=== PATIENT | male | born 1965 | race Caucasian/White ===

== ENCOUNTER 2016-08-26 02:31 | Emergency (ER) | payer OTHER ==
[~2016-08-26] VITALS: Ht 175.3 cm; Wt 81.6 kg
[~2016-08-26 02:31] MED LIST: AUGMENTIN 875 M1 TAB PO; IBUPROFEN800 MG PO; VICODIN5-300 PO
--- NOTE | 2016-08-26 02:43 | ED AMS/SEIZURE/WEAK/DIZZY ---
See Addendum History of Present Illness General Chief Complaint: ETOH/Drug Related Complaint Stated Complaint: "EMS ETOH" Source: patient, EMS Exam Limitations: no limitations Vital Signs & Intake/Output Vital Signs & Intake/Output Vital Signs Date Time Temp Pulse Resp B/P Pulse O2 O2 Flow FiO2 Ox Delivery Rate 08/26 729 97.7 103 15 125/84 08/26 0730 97.7 103 15 125/84 97 Room Air Room Air 08/26 0654 97.2 99 18 114/67 96 Room Air 08/26 0320 97.8 108 18 147/94 08/26 0305 97.8 108 18 147/94 95 Room Air Allergies Coded Allergies: NO KNOWN ALLERGIES (05/01/15) Reconcile Medications AMOXICILLIN/POTASSIUM CLAV (Augmentin 875-125 Tablet) 875 MG/125 MG TAB 1 TAB PO BID BRONCHITIS HYDROCODONE/ACETAMINOPHEN (Hydrocodon-Acetaminophen 5-325) 1 TAB TAB 1 TAB PO Q4-6 PRN PAIN Ibuprofen 800 MG TAB 1 TAB PO 4 TIMES/DAY PRN PAIN Triage Nurses Notes Reviewed? yes Onset: Gradual Duration: week(s):, waxing and waning Timing: recent history Injury Environment: home Severity: moderate Modifying Factors: Improves With: rest. Associated Symptoms: "I need to get this stuff out of me." HPI: 51-year-old gentleman history of alcoholism and COPD presents seeking alcohol detox. He states that he drinks between 1 and 2 pints of liquor each day. He states, "every morning when I wake up I start vomiting." He denies suicidality homicidality or hallucinations. He notes that he did once have a seizure, but that was more than 2 years ago. His last drink was just prior to arrival. He states that he is otherwise well and has no other concerns. He states that he does not regularly use other drugs. (SUSHIL ELIAS,SKYLER Rangel) Past History Travel History Traveled to [place] past 21 day No Medical History Any Pertinent Medical History? 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 No (SKYLER PRUITT MD) Review of Systems Review of Systems Constitutional: Reports: no symptoms. EENTM: Reports: no symptoms. Respiratory: Reports: no symptoms. Cardiovascular: Reports: no symptoms. GI: Reports: no symptoms. Genitourinary: Reports: no symptoms. Musculoskeletal: Reports: no symptoms. Skin: Reports: no symptoms. Neurological/Psychological: Reports: no symptoms. Hematologic/Endocrine: Reports: no symptoms. Immunologic/Allergic: Reports: no symptoms. All Other Systems: Reviewed and Negative (SUSHIL ELIAS,SKYLER Rangel) Physical Exam Physical Exam General Appearance: well developed/nourished, mild distress Head: atraumatic, normal appearance Eyes: Bilateral: normal appearance. Ears, Nose, Throat: normal pharynx, normal ENT inspection, hearing grossly normal Neck: normal inspection, supple, full range of motion Respiratory: normal breath sounds, chest non-tender, no respiratory distress, quiet respiration, lungs clear Cardiovascular: regular rate/rhythm Gastrointestinal: normal bowel sounds, soft, non-tender, no organomegaly Back: normal inspection Extremities: normal range of motion Neurologic/Psych: no motor/sensory deficits, awake, alert, oriented x 3 Skin: intact, normal color, warm/dry Core Measures ACS in differential dx? No CVA/TIA Diagnosis: No Severe Sepsis Present: No Septic Shock Present: No (SUSHIL ELIAS,SKYLER Rangel) Progress Differential Diagnosis: alcoholism versus other Plan of Care: Orders Procedure Date/time Status Regular Diet 08/26 B Active Pathway - chart 08/26 246 Active CIWA 08/26 246 Active CASE MANAGEMENT CONSULT 08/26 246 Active URINE DRUG SCREEN FOR ER ONLY 08/26 242 Complete LIPASE 08/26 242 Complete ETHANOL 08/26 242 Complete COMPREHENSIVE METABOLIC PANEL 08/26 242 Complete CBC WITHOUT DIFFERENTIAL 08/26 242 Complete AMYLASE 08/26 242 Complete Current Medications Sig/Tarik Start time Last Medication Dose Stop Time Status Admin Folic Acid 1 MG DAILY 08/26 1000 UNVr (Folic Acid) 08/28 1001 Multivitamins 1 TAB DAILY 08/26 1000 UNVr (Theragran Vitamins) Thiamine HCl 100 MG DAILY 08/26 1000 UNVr (Vitamin B1) 08/28 1001 Lorazepam 2 MG Q2P PRN 08/26 0300 AC (Ativan) Lorazepam 1 MG Q2P PRN 08/26 299 AC (Ativan) Lorazepam 2 MG Q2P PRN 08/26 299 AC (Ativan) Lorazepam 1 MG Q2P PRN 08/26 299 AC (Ativan) Laboratory Tests 08/26/16312: Serum Alcohol 263.0 08/26/16312: Anion Gap 13, Estimated GFR > 60, BUN/Creatinine Ratio 10.0, Glucose 154 H, Calcium 8.9, Total Bilirubin 0.4, AST 47, ALT 100 H, Alkaline Phosphatase 110, Total Protein 7.5, Albumin 4.3, Globulin 3.2, Albumin/Globulin Ratio 1.3, Amylase 67, Lipase 257, CBC w Diff NO MAN DIFF REQ, RBC 5.64, MCV 96.9 H, MCH 33.0 H, RDW 12.7, MPV 8.4, Gran % 60.8, Lymphocytes % 24.2, Monocytes % 10.4 H , Eosinophils % 3.1, Basophils % 1.5, Absolute Granulocytes 4.5, Absolute Lymphocytes 1.8, Absolute Monocytes 0.8 H, Absolute Eosinophils 0.2, Absolute Basophils 0.1, PUBS MCHC 34.1, Urine Opiates Screen < 100.00, Methadone Screen < 40, Barbiturate Screen < 60, Ur Phencyclidine Scrn < 6.00, Amphetamines Screen < 100, U Benzodiazepines Scrn < 85, Urine Cocaine Screen < 50, Urine Cannabis Screen < 5.00 Initial ED EKG: none Hand-Off Endorsed To: RULA PUENTES DO Endorsed Time: 0700 Pending: consult (SUSHIL ELIAS,SKYLER Rangel) Departure Departure Disposition: HOME OR SELF CARE Condition: Stable Clinical Impression Primary Impression: Alcoholism Secondary Impressions: Alcohol intoxication Referrals: MILTON ELIAS,PILLO Villar (PCP/Family) Departure Forms: Customer Survey General Discharge Information Comments 08/26/16, 5:27am... pt resting comfortably. etoh level 260's. Pt to be evaluated by case management this am. pt signed out to dr. puentes at 7am, 08/26/16 (SUSHIL ELIAS,SKYLER Rangel) Departure Comments 08/26/16 9 am The patient was signed out to me by Dr. Pruitt. 51-year-old man brought in for alcohol intoxication. He was given Ativan however his CIWA scores are 4-6. He says he does not drink every day but is been drinking frequently since 2009 when he was released from long-term. He has remote history of alcohol withdrawal seizures but none within the last 2 years. I will assess his CIWA scores off Ativan. (RULA PUENTES DO)
[2016-08-26 03:26] LABS: ABSOLUTE BASOPHIL COUNT 0.1 /CUMM (0.0-0.2); ABSOLUTE EOSINOPHIL COUNT 0.2 /CUMM (0.0-0.7); ABSOLUTE GRANULOCYTE CT 4.5 /CUMM (1.4-6.5); ABSOLUTE LYMPH COUNT 1.8 /CUMM (1.2-3.4); ABSOLUTE MONOCYTE COUNT 0.8 /CUMM (0.10-0.60); BASOPHIL % 1.5 % (0.0-2.0); EOSINOPHIL % 3.1 % (0-5); GRANULOCYTE % 60.8 % (42.2-75.2); HEMATOCRIT 54.6 % (42-52); MEAN CORPUSCULAR HGB CONC 34.1 G/DL (33.0-37.0); MEAN CORPUSCULAR VOLUME 96.9 FL (80.0-94.0); MEAN PLATELET VOLUME 8.4 FL (7.4-10.4); PLATELET COUNT 163 /CUMM (130-400); RBC DISTRIBUTION WIDTH 12.7 % (11.5-14.5); RED BLOOD CELL CT 5.64 /CUMM (4.70-6.10); WHITE BLOOD CELL COUNT 7.3 /CUMM (4.8-10.8)
[2016-08-26 12:06] VITALS: BP 124/60
[2016-08-26] MEDS ORDERED: SIMVASTATIN40 M1 PO (12:06)
[2016-08-26] MEDS ORDERED: METOPROLOL SUCC50 M2 PO (12:06)
[2016-08-26] MEDS ORDERED: ATIVAN1 M1 PO (12:34)
== END 2016-08-26 12:41 ==
LOC: ERH 02:31
PROVIDERS: Pediatrics
DX: F10.229 Alcohol dependence with intoxication, unspecified (principal); R11.10 Vomiting, unspecified
CPT/HCPCS: 80307; G0480; J3490

== ENCOUNTER 2016-10-12 03:09 | Emergency (ER) | payer OTHER ==
[~2016-10-12] VITALS: Ht 177.8 cm; Wt 90.7 kg
[~2016-10-12 03:09] MED LIST changes: +ATIVAN1 M1 PO; +METOPROLOL SUCC50 M2 PO; +SIMVASTATIN40 M1 PO
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
[2016-10-12 05:45] LABS: ABSOLUTE BASOPHIL COUNT 0.1 /CUMM (0.0-0.2); ABSOLUTE EOSINOPHIL COUNT 0.3 /CUMM (0.0-0.7); ABSOLUTE GRANULOCYTE CT 4.3 /CUMM (1.4-6.5); ABSOLUTE LYMPH COUNT 2.2 /CUMM (1.2-3.4); ABSOLUTE MONOCYTE COUNT 0.5 /CUMM (0.10-0.60); BASOPHIL % 0.9 % (0.0-2.0); EOSINOPHIL % 3.9 % (0-5); GRANULOCYTE % 58.3 % (42.2-75.2); HEMATOCRIT 50.5 % (42-52); MEAN CORPUSCULAR HGB 33.3 PG (27.0-31.0); MEAN CORPUSCULAR HGB CONC 34.4 G/DL (33.0-37.0); MEAN CORPUSCULAR VOLUME 96.9 FL (80.0-94.0); MEAN PLATELET VOLUME 8.1 FL (7.4-10.4); PLATELET COUNT 193 /CUMM (130-400); RBC DISTRIBUTION WIDTH 12.6 % (11.5-14.5); RED BLOOD CELL CT 5.22 /CUMM (4.70-6.10); WHITE BLOOD CELL COUNT 7.4 /CUMM (4.8-10.8)
[2016-10-12 16:15] VITALS: BP 156/94
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
== END 2016-10-12 16:43 ==
LOC: ERH 03:09
PROVIDERS: Emergency Medicine
DX: F32.9 Major depressive disorder, single episode, unspecified (principal)
CPT/HCPCS: 80307; G0463; G0480